=== PATIENT | male | born 1945 | race Caucasian/White ===

== ENCOUNTER 2017-08-07 10:36 | Emergency (ER) | payer OTHER ==
[~2017-08-07] VITALS: Ht 172.7 cm; Wt 84.0 kg
[2017-08-07 10:41] VITALS: TEMP 36.7; Ht 172.7 cm; Wt 84.0 kg
--- NOTE | 2017-08-07 11:24 | DIAGNOSTIC IMAGING REPORT ---
LEFT KNEE 3 VIEWS CLINICAL HISTORY: Twisted Left knee, [place] a "Pop." Pain COMPARISON: None. DISCUSSION: The bones and joint spaces appear intact. There is no evidence of fracture, dislocation or bony disease. There is no evidence for soft tissue swelling. IMPRESSION: Negative study. The above report was generated using voice recognition software. It may contain grammatical, syntax or spelling errors. Electronically signed by: Randy Carey M.D. 08/07/2017 11:23 AM Dictated Date/Time: 08/07/2017 11:22 AM
[2017-08-07] MEDS ORDERED: PRAV40TA2 PO (11:51)
[2017-08-07] MEDS ORDERED: COEN1CAP28 PO (11:51)
[2017-08-07] MEDS ORDERED: RST15 PO (11:51)
[2017-08-07] MEDS ORDERED: CHOL2000 PO (11:51)
[2017-08-07] MEDS ORDERED: SERT25TA PO (11:51)
[2017-08-07] MEDS ORDERED: DIPH50TA10 PO (11:51)
[2017-08-07] MEDS ORDERED: SUCR1TAB29 PO (11:51)
[2017-08-07] MEDS ORDERED: OXYCODONE/ACETAMINOPHEN 5-325 TAB PO ONE (12:00)
--- NOTE | 2017-08-07 13:45 | DIAGNOSTIC IMAGING REPORT ---
LEFT VENOUS DOPP LOWER EXT UNILAT CLINICAL HISTORY: pain behind knee pain. Edema. TECHNIQUE: Venous Doppler COMPARISON STUDY: None FINDINGS: Normal study IMPRESSION: Normal study The above report was generated using voice recognition software. It may contain grammatical, syntax or spelling errors. Electronically signed by: Randy Carey M.D. 08/07/2017 1:44 PM Dictated Date/Time: 08/07/2017 1:43 PM
[2017-08-07] MEDS ORDERED: OXYC-57 PO (14:07)
--- NOTE | 2017-08-07 14:09 | EMERGENCY ROOM VISIT NOTE ---
History Report prepared by Allison: Caroline Novak Under the Supervision of: Dr. Miguel Henriquez D.O. First contact with patient: 11:26 Chief Complaint: KNEEPAIN Stated Complaint: KNEE PAIN History of Present Illness The patient is a 72 year old male who presents to the Emergency Room with complaints of persistent, worsening left knee pain that began one month ago. He currently rates his discomfort as a 6/10 in severity. The patient states that he has noticed increasing left knee pain over the past month. The patient' s states that she made an appointment for the patient to see an orthopedic doctor. The patient denies any fall or trauma. He states that this morning he was stepping up with his right leg and noticed feeling a pop or a snap in his left knee. The patient reports increased pain with ambulation. He states that he has had difficulty bearing weight on his right leg due to the pain. Source of History: patient Onset: one month ago Position: knee (left) Symptom Intensity: 6/10 Quality: other Timing: other (persistent) Modifying Factors (Worsening): other (ambulation) Review of Systems See HPI for pertinent positives & negatives. A total of 10 systems reviewed and were otherwise negative. Past Medical & Surgical Medical Problems: (1) Carpal tunnel syndrome (2) GERD (gastroesophageal reflux disease) Family History Cancer Diabetes mellitus Hypertension Lung disease Social History Smoking Status: Never Smoker Smokeless Tobacco Use: No Alcohol Use: occasionally Marital Status: Housing Status: lives with significant other Occupation Status: retired Current/Historical Medications Scheduled Cholecalciferol (Vitamin D3), 1 CAP PO HS Coenzyme Q10 (Ubidecarenone) (Co Q10), 2 CAP PO HS Diphenhydramine Hcl (Sleep) (Diphenhydramine Hcl), 1 TAB PO HS Pravastatin Sodium (Pravastatin Sodium), 1 TAB PO HS Sertraline (Zoloft), 25 MG PO HS Sucralfate (Carafate), 1 GM PO AC Temazepam (Temazepam), 30 MG PO UD Allergies Coded Allergies: No Known Allergies (Unverified , 08/07/17) Physical Exam Vital Signs Date Time Temp Pulse Resp B/P (MAP) Pulse Ox O2 Delivery O2 Flow Rate FiO2 08/07/17 12:40 77 18 134/76 97 Room Air 08/07/17 10:41 36.7 77 18 161/99 97 Room Air Physical Exam CONSTITUTIONAL/VITAL SIGNS: Reviewed / noted above. GENERAL: Non-toxic in appearance. INTEGUMENTARY: Warm, dry, and [place]. HEAD: Normocephalic. EYES: without scleral icterus or trauma. ENT/OROPHARYNX: clear and moist. LYMPHADENOPATHY/NECK: Is supple without lymphadenopathy or meningismus. RESPIRATORY: Lungs clear and equal. CARDIOVASCULAR: Regular rate and rhythm. GI/ABDOMEN: Soft and nontender. No organomegaly or pulsatile mass. No rebound or guarding. Normal bowel sounds. EXTREMITIES: Mild tenderness in left popliteal region, no joint effusion, no ligamentous laxity, no calf pain, no obvious palpable or visual abnormalities BACK: No CVA tenderness. NEUROLOGICAL: Intact without focal deficits. PSYCHIATRIC: normal affect. MUSCULOSKELETAL: Normally developed with good muscle tone. Medical Decision & Procedures ER Provider Diagnostic Interpretation: Radiology results as stated below per my review and radiologist interpretation: LEFT KNEE 3 VIEWS CLINICAL HISTORY: Twisted Left knee, [place] a "Pop." Pain COMPARISON: None. DISCUSSION: The bones and joint spaces appear intact. There is no evidence of fracture, dislocation or bony disease. There is no evidence for soft tissue swelling. IMPRESSION: Negative study. The above report was generated using voice recognition software. It may contain grammatical, syntax or spelling errors. Electronically signed by: Randy Carey M.D. 08/07/2017 11:23 AM Dictated Date/Time: 08/07/2017 11:22 AM LEFT VENOUS DOPP LOWER EXT UNILAT CLINICAL HISTORY: pain behind knee pain. Edema. TECHNIQUE: Venous Doppler COMPARISON STUDY: None FINDINGS: Normal study IMPRESSION: Normal study The above report was generated using voice recognition software. It may contain grammatical, syntax or spelling errors. Electronically signed by: Randy Carey M.D. 08/07/2017 1:44 PM Dictated Date/Time: 08/07/2017 1:43 PM Medications Administered Medications (Trade) Dose Ordered Sig/Elisabeth Route Start Time Stop Time Status Last Admin Dose Admin Oxycodone/ Acetaminophen (Percocet 5-325mg Tab) 1 tab NOW ONCE PO 08/07/17 12:00 08/07/17 12:01 DC 08/07/17 12:05 1 TAB ED Course 1127: Previous medical records were reviewed. The patient was evaluated in room C10. A complete history and physical examination was performed. 1200: Ordered Oxycodone/Acetaminophen 1 tab PO. 1400: I reevaluated the patient and he is doing well. I discussed the exam findings with him and I discussed the treatment plan. He verbalized complete understanding and agreement. He is ready to go home. Medical Decision Differential diagnosis include Popliteal cyst, DVT, ligamentous strain, sprain, infection, ashok trauma This is a patient who presents to the ED with a chief complaint of left posterior knee pain. The patient states that he was standing on his right leg reaching into his truck and heard a pop in the posterior left knee region. The patient has had discomfort and difficulty walking since that time. This occurred this morning. He states that he has been having some problems with his left knee for the past month and yesterday got an appointment with Dr. Mcpherson for the . He denies any other significant symptoms. His exam was essentially unremarkable with exception of some mild tenderness in the popliteal space in the left knee. There is no effusion. No ligamentous laxity. No tenderness anteriorly, laterally or medially. X-ray of the knee did not show any abnormality. Ultrasound of the leg did not show abnormality. The patient was told the results. He does seem to have some discomfort with evaluation of the meniscus on exam. This may be a meniscal injury. He was referred to Dr. Mcpherson. Suggest follow-up next week. They will contact his office. Prescription for Percocet given.. PDMP program did not show any issues. He was given crutches. [place] Drug Monitoring Program Search Results: no issues identified Medication Reconcilliation Current Medication List: was personally reviewed by me Blood Pressure Screening Patient's blood pressure: Elevated blood pressure Blood pressure disposition: Elevated BP felt to be situational, Did not require urgent referral Impression Primary Impression: Knee pain Scribe Attestation The scribe's documentation has been prepared under my direction and personally reviewed by me in its entirety. I confirm that the note above accurately reflects all work, treatment, procedures, and medical decision making performed by me. Departure Information Dispostion Home / Self-Care Prescriptions Oxycodone/Acetaminophen 5MG/325MG (PERCOCET 5MG/325MG) Tab 1 TAB PO Q6H Y for Pain, #20 TAB Prov: Miguel Henriquez D.O. 08/07/17 Referrals No Doctor, Assigned (PCP) Ladarius Mcpherson M.D. Patient Instructions My [facility] Additional Instructions Follow-up with Dr. Mcpherson. Call tomorrow for appointment next week. Use crutches. Percocet as prescribed. No driving within 6 hours of use. Do not take additional Tylenol while taking Percocet.
[2017-08-07 14:20] VITALS: BP 142/78; PULSE 77; O2SAT 98
== END 2017-08-07 14:33 | disposition home or self-care (01) ==
LOC: C.EDB 10:40 → C.EDC 14:33
DX: M25.562 Pain in left knee (principal); Z83.3 Family history of diabetes mellitus; Z82.49 Family history of ischemic heart disease and other diseases of the circulatory system

== ENCOUNTER → 2018-03-04 | Outpatient (CLI) | payer OTHER ==
[~2018-03-04] MED LIST: CHOL2000 PO; COEN1CAP28 PO; DIPH50TA10 PO; PRAV40TA2 PO; RST15 PO; SERT25TA PO; SUCR1TAB29 PO
[2018-03-04 17:56] LABS: BASO ABS # 0.04 K/uL (0-0.2); EOS % 15.2 %; HEMATOCRIT 42.7 % (42-52); HEMOGLOBIN 14.2 g/dL (14.0-18.0); IG# 0.02 K/uL (0.00-0.02); LYMPH % 19.8 %; LYMPH ABS # 0.78 K/uL (1.2-3.4); MEAN CORPUSCULAR HEMOGLOBIN 32.3 pg (25-34); MEAN CORPUSCULAR HGB CONC 33.3 g/dl (32-36); MEAN PLATELET VOLUME 9.9 fL (7.4-10.4); MONO % 10.4 %; MONO ABS # 0.41 K/uL (0.11-0.59); NEUT % 53.1 %; NEUT ABS # 2.09 K/uL (1.4-6.5); PLATELET COUNT 269 K/uL (130-400); RED CELL DISTRIBUTION WIDTH CV 12.4 % (11.5-14.5); RED CELL DISTRIBUTION WIDTH SD 44.1 fL (36.4-46.3); WHITE BLOOD COUNT 3.94 K/uL (4.8-10.8)
[2018-03-04 18:27] LABS: ALBUMIN 4.1 gm/dl (3.4-5.0); ALKALINE PHOSPHATASE 61 U/L (45-117); ALT/SGPT 22 U/L (12-78); AST/SGOT 15 U/L (15-37); BLOOD UREA NITROGEN 13 mg/dl (7-18); CALCIUM 9.2 mg/dl (8.5-10.1); CARBON DIOXIDE 26 mmol/L (21-32); CHOLESTEROL 207 mg/dl (0-200); CREATININE 1.18 mg/dl (0.60-1.40); GLUCOSE 92 mg/dl (70-99); LDL CHOLESTEROL CALCULATED 120 mg/dl; SODIUM 135 mmol/L (136-145); TOTAL PROTEIN 7.4 gm/dl (6.4-8.2)
== END | disposition home or self-care (01) ==
LOC: C.LABMFLN 11:43
PROVIDERS: ATTEND Family Medicine
DX: Z12.5 Encounter for screening for malignant neoplasm of prostate (principal); E78.5 Hyperlipidemia, unspecified; E55.9 Vitamin D deficiency, unspecified; D72.1 Eosinophilia